=== PATIENT | male | born 1970 | race African-American/Black ===

== ENCOUNTER 2024-08-02 19:15 | Inpatient (IN) | payer MEDICAID ==
[~2024-08-02] VITALS: Ht 182.9 cm; Wt 78.5 kg
[2024-08-02 20:27] LABS: BASOPHILS % (AUTO) 0.2 % (0.0-2.0); EOSINOPHILS % (AUTO) 0.9 % (1.0-6.0); HEMATOCRIT 41.8 % (41-53); HEMOGLOBIN 13.9 g/dL (13.5-17.5); LYMPHOCYTES # (AUTO) 1.1 K/uL (1.0-4.8); LYMPHOCYTES % (AUTO) 14.6 % (22.0-44.0); MEAN CORPUSCULAR HEMOGLOBIN 30.9 pg (26.0-34.0); MEAN CORPUSCULAR HGB CONC 33.2 G/dL (31.0-37.0); MEAN CORPUSCULAR VOLUME 93 fL (80-100); MONOCYTES # (AUTO) 0.9 K/uL (0.1-1.0); MONOCYTES % (AUTO) 12.9 % (2.0-9.0); NEUTROPHILS # (AUTO) 5.2 K/uL (1.8-7.7); NEUTROPHILS % (AUTO) 71.4 % (40.0-70.0); PLATELET COUNT (AUTO) 162 K/uL (150-450); RED CELL DISTRIBUTION WIDTH 14.3 % (11.5-14.5); WHITE BLOOD COUNT (AUTO) 7.2 K/uL (4.5-11.0)
[2024-08-02 20:32] LABS: ANION GAP 4 mmol/L (8-16); CALCIUM, TOTAL 8.9 mg/dL (8.8-10.5); CARBON DIOXIDE 32 mmol/L (22-29); CHLORIDE 102 mmol/L (98-107); GLOMERULAR FILTR. RATE CALC > 60 mL/min (>60); GLUCOSE,RANDOM 127 mg/dL (70-110); POTASSIUM 3.7 mmol/L (3.5-5.1); SODIUM SERUM 138 mmol/L (136-145); UREA NITROGEN, BLOOD 11 mg/dL (7-18)
[2024-08-02 20:48] LABS: ALANINE AMINOTRANSFERASE 22 U/L (12-78); ALBUMIN 2.9 g/dL (3.4-5.0); ALKALINE PHOSPHATASE 106 U/L (46-116); ASPARTATE AMINOTRANSFERASE 15 U/L (15-37); BILIRUBIN,TOTAL 0.2 mg/dL (0.1-1.0); TOTAL PROTEIN, SERUM 8.4 g/dL (6.4-8.2)
[2024-08-02 21:06] LABS: ALCOHOL, BLOOD (SERUM) < 3 mg/dL (0-10)
[2024-08-02] MEDS ORDERED: BISA-151 PO (21:08)
[2024-08-02] MEDS ORDERED: OLAN10TA74 PO (21:08)
[2024-08-02] MEDS ORDERED: DOCU-412 PO (21:08)
[2024-08-02] MEDS ORDERED: LOXAPINE PO (21:08)
[2024-08-02] MEDS ORDERED: DIVA-153 PO (21:08)
[2024-08-02] MEDS ORDERED: NALO4SPR NASAL (21:08)
[2024-08-02] MEDS: ACETAMINOPHEN 500 MG TABLET PO ONE (21:52)
[2024-08-02 22:10] LABS: COVID AG,FIA SOURCE NASAL SWAB
[2024-08-02 22:48] LABS: SARS-COV2 (COVID) ANTIGEN,FIA Negative (Negative)
[2024-08-03 00:39] LABS: APPEARANCE,URINE CLEAR (CLEAR); BILIRUBIN,URINE NEGATIVE (NEGATIVE); COLOR,URINE YELLOW (YELLOW); GLUCOSE, URINE (UA) NEGATIVE (NEGATIVE); LEUKOCYTE ESTERASE ,URINE NEGATIVE (NEGATIVE); NITRATE,URINE NEGATIVE (NEGATIVE); OCCULT BLOOD,URINE NEGATIVE (NEGATIVE); PROTEIN,URINE TRACE mg/dL (NEGATIVE); SPECIFIC GRAVITIY, URINE 1.027 (1.003-1.030); UROBILINOGEN,URINE <=1.0 mg/dL (<=1.0)
[2024-08-03 00:46] LABS: AMPHET/METH SCREEN,URINE NEGATIVE (NEGATIVE); BARBITURATE SCREEN, URINE NEGATIVE (NEGATIVE); BENZODIAZEPINES SCREEN,URINE NEGATIVE (NEGATIVE); CANNABINOID SCREEN,URINE NEGATIVE (NEGATIVE); COCAINE SCREEN,URINE NEGATIVE (NEGATIVE); METHADONE SCREEN, URINE NEGATIVE (NEGATIVE); OPIATE SCREEN,URINE NEGATIVE (NEGATIVE); PHENCYCLIDINE SCREEN,URINE NEGATIVE (NEGATIVE)
[2024-08-03 00:51] LABS: ALCOHOL, URINE DRUG SCREEN NEGATIVE (NEGATIVE)
[2024-08-03] MEDS ORDERED: haloperidoL 5 MG TABLET PO PRN (05:30)
[2024-08-03 06:17] VITALS: O2SAT 99
[2024-08-03 12:46] VITALS: BP 115/87; PULSE 108; RESP 14; TEMP 98; O2SAT 100
[2024-08-03] MEDS ORDERED: LOXA10CA PO (13:15)
[2024-08-03 20:37] VITALS: BP 95/63; PULSE 100; RESP 16; TEMP 97.8; O2SAT 96
[2024-08-03] MEDS: OLANZapine 7.5 MG TABLET PO SCH (21:11)
[2024-08-03] MEDS: ZOLPIDEM TARTRATE 10 MG TABLET PO PRN (21:11)
[2024-08-03] MEDS ORDERED: BACITRACIN 28 GM OINTMENT TP PRN (23:15)
[2024-08-03] MEDS ORDERED: ACETAMINOPHEN 325 MG TABLET PO PRN (23:15)
[2024-08-03] MEDS ORDERED: ONDANSETRON 4 MG TABLET PO PRN (23:15)
[2024-08-03] MEDS ORDERED: CloNIDine HCL 0.1 MG TABLET PO PRN (23:15)
[2024-08-03] MEDS ORDERED: IBUPROFEN 600 MG TABLET PO PRN (23:15)
[2024-08-03] MEDS ORDERED: OMEPRAZOLE 20 MG CAPSULE PO PRN (23:15)
[2024-08-03] MEDS ORDERED: DOCUSATE SODIUM 100 MG CAPSULE PO PRN (23:15)
[2024-08-03] MEDS ORDERED: LOPERAMIDE HCL 2 MG CAPSULE PO PRN (23:15)
[2024-08-03] MEDS ORDERED: ALBUTEROL SULFATE HFA 90 MCG/PUFF 8 GM INHALER IH PRN (23:15)
[2024-08-03] MEDS ORDERED: MAG HYDROX/ALUMINUM HYD/SIMETH ES 30 ML SUSPENSION UDCUP PO PRN (23:15)
[2024-08-03] MEDS ORDERED: MAGNESIUM HYDROXIDE SUSPENSION 30 ML UDCUP PO PRN (23:15)
[2024-08-03] MEDS ORDERED: PETROLATUM,WHITE 28 GM JELLY TP PRN (23:15)
[2024-08-03] MEDS ORDERED: BENZOCAINE/MENTHOL [CEPACOL] LOZENGE PO PRN (23:15)
[2024-08-04] MEDS: LORazepam 2 MG TABLET PO PRN (07:57)
[2024-08-04 08:49] LABS: BASOPHILS % (AUTO) 0.2 % (0.0-2.0); EOSINOPHILS % (AUTO) 2.1 % (1.0-6.0); HEMATOCRIT 39.4 % (41-53); HEMOGLOBIN 12.9 g/dL (13.5-17.5); LYMPHOCYTES # (AUTO) 1.5 K/uL (1.0-4.8); LYMPHOCYTES % (AUTO) 22.4 % (22.0-44.0); MEAN CORPUSCULAR HEMOGLOBIN 30.7 pg (26.0-34.0); MEAN CORPUSCULAR HGB CONC 32.8 G/dL (31.0-37.0); MEAN CORPUSCULAR VOLUME 93 fL (80-100); MONOCYTES # (AUTO) 1.3 K/uL (0.1-1.0); MONOCYTES % (AUTO) 19.4 % (2.0-9.0); NEUTROPHILS # (AUTO) 3.7 K/uL (1.8-7.7); NEUTROPHILS % (AUTO) 55.9 % (40.0-70.0); PLATELET COUNT (AUTO) 157 K/uL (150-450); RED BLOOD CELL COUNT(AUTO) 4.21 MIL/uL (4.50-5.90); RED CELL DISTRIBUTION WIDTH 14.2 % (11.5-14.5); WHITE BLOOD COUNT (AUTO) 6.7 K/uL (4.5-11.0)
[2024-08-04 09:09] LABS: HEMOGLOBIN A1C 5.7 % (3.8-5.6)
[2024-08-04 09:10] LABS: ALANINE AMINOTRANSFERASE 34 U/L (12-78); ALBUMIN 2.6 g/dL (3.4-5.0); ALKALINE PHOSPHATASE 80 U/L (46-116); ANION GAP 6 mmol/L (8-16); ASPARTATE AMINOTRANSFERASE 24 U/L (15-37); BILIRUBIN,TOTAL 0.3 mg/dL (0.1-1.0); CALCIUM, TOTAL 8.6 mg/dL (8.8-10.5); CARBON DIOXIDE 27 mmol/L (22-29); CHLORIDE 106 mmol/L (98-107); CHOL/HDL RATIO 2.6 (4.2-7.3); CHOLESTEROL 132 mg/dL (131-200); CREATININE 0.86 mg/dL (0.60-1.30); GLOMERULAR FILTR. RATE CALC > 60 mL/min (>60); GLUCOSE,RANDOM 99 mg/dL (70-110); HDL CHOLESTEROL 50 mg/dL (40-60); POTASSIUM 3.6 mmol/L (3.5-5.1); SODIUM SERUM 139 mmol/L (136-145); TOTAL PROTEIN, SERUM 7.3 g/dL (6.4-8.2); TRIGLYCERIDES 39 mg/dL (15-150); UREA NITROGEN, BLOOD 11 mg/dL (7-18)
[2024-08-04 09:11] LABS: LDL CHOL (CALC.) 74 mg/dL (0-130); T4 (THYROXINE) 5.4 mcg/dL (4.7-13.3); THYROID STIMULATING HORMONE 4.99 uIU/mL (0.36-3.74)
[2024-08-04 13:04] VITALS: BP 108/71; PULSE 91; RESP 17; TEMP 98.3; O2SAT 99
[2024-08-04 20:16] VITALS: BP 101/66; PULSE 98; RESP 18; TEMP 98; O2SAT 97
[2024-08-05 08:30] VITALS: BP 104/72; PULSE 96; RESP 16; TEMP 97; O2SAT 88
[2024-08-05 20:31] VITALS: BP 113/76; PULSE 86; RESP 16; TEMP 97.6; O2SAT 100
[2024-08-06 08:28] VITALS: BP 111/76; PULSE 98; RESP 17; TEMP 98.1; O2SAT 98
[2024-08-06 20:33] VITALS: BP 114/70; PULSE 90; RESP 18; TEMP 98.2; O2SAT 98
[2024-08-07] MEDS ORDERED: OLAN7.5T22 PO (08:35)
[2024-08-07 09:13] VITALS: BP 117/85; PULSE 100; RESP 18; TEMP 97; O2SAT 98
== END 2024-08-07 11:07 | disposition home or self-care (01) | DRG 750 ==
LOC: EMS 19:15 → B3A 08-03 08:53
PROVIDERS: ADMIT Psychiatry & Neurology Psychiatry; ATTEND Psychiatry & Neurology Psychiatry
DX: F20.9 Schizophrenia, unspecified (principal); G40.909 Epilepsy, unspecified, not intractable, without status epilepticus; F32.A Depression, unspecified; F41.9 Anxiety disorder, unspecified; Z20.822 Contact with and (suspected) exposure to COVID-19; K59.00 Constipation, unspecified; G47.00 Insomnia, unspecified; Z72.0 Tobacco use; Z87.820 Personal history of traumatic brain injury; Z71.6 Tobacco abuse counseling
CPT/HCPCS: 80048; 80053; 80061; 80076; 80307; 81003; 83036; 84436; 84443; 85025; 99285; G0480